=== PATIENT | male | born 1940 | race Caucasian/White ===

== ENCOUNTER 2023-08-10 13:45 | Outpatient (AMB) | payer OTHER, SELFPAY ==
--- NOTE | 2023-08-10 13:56 | MHC.OFFVIS ---
Intake Vital Signs 08/10/23 13:59 Height 5 ft 4 in Weight 180 lb BMI 30.9 BP 130/68 Blood Pressure Location Rt brachial Position Sitting Pulse 76 Pulse Source Pulse Oximeter Pulse Oximetry (%) 93 Oxygen Delivery Method Room Air Intake Visit Reasons: ENP-Prog gaitdisorder/Intentional tremor-Conf Intake Note: Patient presents for follow up intentional tremors and gait disorder. My tremors are a little bit now,my balance is a problem I can be taking a shower and loose balance I drag my feet to walk. Allergies No Known Allergies Allergy (Verified 08/10/23 14:02) Medication List - Last Reconciled 08/13/23 by Merna Jacob, JOSE amlodipine 5 mg PO DAILY carbidopa-levodopa 25-100 mg 1 tab PO BID 30 days HPI HPI Comments History of Present Illness Details 83-year-old male presents for new pt evaluation of movement disorder. He is accompanied by his friend Jason who helps with history. 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 Then about 6 months ago he started to notice changes in his gait. Pt is right handed. ADL status: Ind, but sometimes his helps w/ his socks and shoes IADL status: helps Fine-motor skills: No issues. Can eat Pt reports: Micrographia: No issues Hypophonia: Denies Hyposmia: No sense of smell since after bladder sx Dysphagia: Denies Drooling: Denies Orthostatic lightheadedness: Denies- but is slow to stand Constipation: Denies Slowness: Is slower Freezing episodes: Unsure Tremor: BUE- w/ cation, intensity varies Stiffness: Right fingers can be tight and postured at times Gait changes: Stooped, no arm swing, bent knees, shuffled steps- gait better when holding on to something. Falls: Last fall a couple of years ago Sleep difficulty: Sleeps ok- can sleep a lot. Denies parasomnias, vivid dreams. Memory impairment: Ok Hallucinations: Denies Usual exercise: Does some simple leg exercises, walk w/ walker. He did PT a few months. Also endorses low back pain, BLE nocturnal leg cramps. Denies numbness, tingling. He has not had brain MRI. History of concussion/head injury? None History of neuroleptic (metoclopramide/antipsychotics) use? None History of psychiatric hospitalizations? None History of occupational chemical exposures? 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 Family history of movement disorders? None- his father was lost in the war in 1940 Family history of mood disorder or suicide? none [facility] Medical History (Updated 08/13/23 @ 20:23 by JOSE Estrada) Arthritis Hyperlipidemia Gout Chronic kidney disease, stage 3 Hypertension Ureteral cancer Surgical History (Updated 08/10/23 @ 14:13 by SARY Johnson) H/O ileostomy Social History (Updated 08/10/23 @ 14:05 by SARY Johnson) Alcohol intake: never Patient Tobacco Use Status: Never used Tobacco Review of Systems Const All systems reviewed & are unremarkable except as noted in HPI and below Physical Exam Vital Signs: Last Vital Signs Pulse 76 08/10/23 13:59 BP 130/68 08/10/23 13:59 Pulse Ox 93 08/10/23 13:59 Oxygen Delivery Method Room Air 08/10/23 13:59 BMI result Body Mass Index 30.9 Const General: cooperative and no acute distress Resp Effort & Inspection: normal respiratory effort and able to speak in complete sentences Cardio Rate: regular rate Rhythm: regular rhythm Neuro Other: General: Alert and oriented x3 Expression: Decreased facial expression with left facial droop. Palpebral fissure asymmetry right smaller than left Voice: Soft voice Tremor: LUE rest tremor and BUE postural tremor KELLI: BUE ok Tone: BUE, mybno-[id number]-btnn-left Dyskinesia: None FFM: Bradykinesia left more so than right Foot taps: Bradykinesia left more so than right Gait: Slow to stand [place], decreased arm swing, very short steps. Psych: Pleasant affect Deep tendon reflexes (DTR's): Right triceps reflex intensity grade: 2+, Left triceps reflex intensity grade: 2+, Rt Biceps (C5, C6): 2+, Left biceps reflex intensity grade: 2+, Right brachioradialis reflex intensity grade: 2+, Left brachioradialis reflex intensity grade: 2+, Right patellar reflex intensity grade: 2+ and Left patellar reflex intensity grade: 2+ Psych Mental Status: mental status grossly normal Speech and movement: Normal speech and movement present Affect: normal affect Attitude: cooperative Thought process: Normal thought process present Assessment & Plan Assessment & Plan (1) Tremor: Comment: Patient has long work history as a industrial welder. Code(s): R25.1 - Tremor, unspecified (2) Rigidity: Code(s): R29.898 - Other symptoms and signs involving the musculoskeletal system (3) Gait disturbance: Code(s): R26.9 - Unspecified abnormalities of gait and mobility (4) Bradykinesia: Code(s): R25.8 - Other abnormal involuntary movements (5) Cervicalgia: Code(s): M54.2 - Cervicalgia Plan Patient has symptoms consistent with a neurodegenerative dopaminergic process, such as Parkinson's, however to ensure patient does not have any secondary processes that would mimic a Parkinson's disease presentation, patient is advised to undergo: Brain MRI with and without contrast Cervical x-rays four views Will also request recent labs from [facility]. In the mean time, will trial the patient on low-dose carbidopa levodopa to see if his symptoms are levodopa responsive. Start carbidopa levodopa 25-100 mg 1 tab b.i.d. taken at least 30-45 minutes before breakfast and dinner. May take with a small amount of carbohydrate, but try to avoid taking with protein. Patient would benefit from doing a course of physical therapy for tremor, gait, and general strength and endurance. Follow-up upon review of above and in clinic in 3 months or sooner as needed. This note is constructed using voice recognition software. While every effort has been made to ensure accuracy, matzo forming machine operator errors may have been included. Orders: Orders MR head/brain wo/w con Today C66.9 - Malignant neoplasm of unspecified ureter, R25.1 - Tremor, unspecified, R25.8 - Other abnormal involuntary movements, R26.9 - Unspecified abnormalities of gait and mobility, R29.898 - Other symptoms and signs involving the musculoskeletal system XR cervical spine 4V Today M54.2 - Cervicalgia, R25.1 - Tremor, unspecified Medications: New carbidopa-levodopa 25-100 mg take w/ a cracker 30 minutes before breakfast and dinner, 1 tab PO BID 60 tabs 3RF 30 days Coding Level of Care Code New Pt Level 4 (10957) Diagnoses Tremor R25.1 Rigidity R29.898 Gait disturbance R26.9 Bradykinesia R25.8 Cervicalgia M54.2
[2023-08-10 13:59] VITALS: BP 130/68; PULSE 76; O2SAT 93; BMI 30.9
== END 2023-08-10 15:05 | disposition home or self-care (01) ==
PROVIDERS: PCP Internal Medicine; Visit Provider Nurse Practitioner Family
DX: R25.1 Tremor, unspecified (principal); R29.898 Other symptoms and signs involving the musculoskeletal system; R26.9 Unspecified abnormalities of gait and mobility; R25.8 Other abnormal involuntary movements; M54.2 Cervicalgia
CPT/HCPCS: 99204

== ENCOUNTER → 2023-08-10 13:45 | Outpatient (BNVA) | payer OTHER, SELFPAY | PROVIDERS: PCP Internal Medicine; Visit Provider Nurse Practitioner Family ==

== ENCOUNTER 2023-11-21 15:54 | Outpatient (AMB) | payer OTHER, SELFPAY ==
--- NOTE | 2023-11-21 15:55 | A.OFFVIS_ITS ---
Vital Signs 11/21/23 16:14 Height 5 ft 4 in Weight 183 lb 6 oz BMI 31.5 BP 120/74 Blood Pressure Location Rt brachial Position Sitting Pulse 61 Pulse Source Pulse Oximeter Pulse Oximetry (%) 98 Oxygen Delivery Method Room Air Intake Visit Reasons: follow up - Confirmed Intake Note: Patient presents for f/u. Allergies No Known Allergies Allergy (Verified 11/21/23 16:04) Medication List - Last Reconciled 11/21/23 by JOSE Estrada amlodipine 5 mg PO DAILY atorvastatin 20 mg PO DAILY carbidopa-levodopa 25-100 mg 1 tab PO BID 30 days lidocaine 5% 1 patch topical DAILY metoprolol succinate ER 50 mg PO DAILY HPI Comments Details: 83-yr-old male presents for f/u visit, accompanied by his friend. Pt denies any significant interval medical history changes. Pt is not exatctly sure why he is here for f/u. He does continue to have tremor and gait difficulties w/ slow short steps. He needs to use a walker at all times. He has not yet tried CD-LD. He did undergo Brain MRI w/wo, results of which were notable for numerous foci of microhemorrhages in the supratentorial and infratentorial brain. Mild scattered foci of T2 prolongation are seen in the white matter. There is a small chronic lacunar infarct in the left inferior cerebellar mass associated with a chronic microhemorrhage. There are small chronic lacunar infarcts in the left basal ganglia, left temporal periventricular white matter, right soto radiata, and left centrum semiovale. There is left chronic thalamic infarct. Tiny chronic right thalamic infarcts are present. Pt denies h/o known acute stroke. 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 Review of recent [facility] records, shows pt did have a recent [facility] pulmonology consult to f/u on abnormal HST w/ RDI 22/hr, O2 naidr 82% w/ SpO2 < 89% x's 101 min, moderate sleep apnea, Cheyen mcmahon respiration, nocturnal hypoxemia. Pt was offered in-lab PSG w/ pap titration. Pt declined as he states he sleeps well. Recent labs were notable for: 04/25/23: HgA1C 6.0 % 04/25/2023 17:03 EDT 08/10/2023: BUN 28 mg/dL, Creatinine-Blood 2.0 mg/dl 08/10/2023 Nt-Probnp 985 pg/mL 04/25/2023 Nt-Probnp 1624 pg/mL 05/18/23: Sed Rate 111 05/16/23: Sed Rate 121 [facility] Medical History (Updated 11/21/23 @ 17:27 by JOSE Estrada) Arthritis Hyperlipidemia Gout Chronic kidney disease, stage 3 Hypertension Ureteral cancer Surgical History H/O ileostomy Social History Alcohol intake: never Patient Tobacco Use Status: Never used Tobacco Review of Systems Const All systems reviewed & are unremarkable except as noted in HPI and below Physical Exam Const General: cooperative and no acute distress Resp Effort & Inspection: normal respiratory effort and able to speak in complete sentences Neuro Other: General: Alert and oriented x3 Expression: Decreased facial expression with left facial droop. Palpebral fissure asymmetry right smaller than left Voice: Soft voice Tremor: BUE postural tremor KELLI: BUE ok Tone: BUE Dyskinesia: None FFM: Bradykinesia left more so than right Foot taps: Bradykinesia left more so than right Gait: Slow to stand, slight stoop, decreased arm swing, very short steps w/ low floor clearance. Psych: Pleasant affect Results Reviewed Results Reviewed: 10/31/23, [facility], MRI Brain W+W/O Contrast COMPARISON: CT head of 12/12/2021 FINDINGS: BRAIN and EXTRA-AXIAL SPACES: The midline structures, including sella, corpus callosum, and craniocervical junction, are unremarkable. There is no mass effect, midline shift, or effacement of the basal cisterns. On diffusion weighted imaging, there are no regions of restricted diffusion to indicate an acute or subacute infarct. There are numerous foci of microhemorrhages in the supratentorial and infratentorial brain. Mild scattered foci of T2 prolongation are seen in the white matter. There is a small chronic lacunar infarct in the left inferior cerebellar mass associated with a chronic microhemorrhage. There are small chronic lacunar infarcts in the left basal ganglia, left temporal periventricular white matter, right soto radiata, and left centrum semiovale. There is left chronic thalamic infarct. Tiny chronic right thalamic infarcts are present. Ventricles, cisterns, and sulci are normal in size and configuration, without hydrocephalus. No abnormal extra-axial fluid collections are seen. Meningeal surfaces are normal. No abnormal intracranial enhancement is seen. Major intracranial flow voids are present. EXTRACRANIAL SOFT TISSUES: There have been lens replacements bilaterally. Paranasal sinuses are clear. There is fluid in the right mastoid air cells and trace of fluid in the left mastoid air cells. There are well-circumscribed T1 and T2 hyperintense lesions in the nasopharynx which may represent mucous retention cysts. BONES: Marrow signal is preserved. IMPRESSION: 1. No acute/subacute infarct, mass, acute hemorrhage, abnormal enhancement, or other acute intracranial abnormality. 2. Multiple chronic microhemorrhage is as described which could be seen with hypertensive hemorrhages, cerebral amyloid angiopathy, or a combination thereof. Clinical correlation is advised. 3. Mild T2/FLAIR hyperintense foci in the white matter, nonspecific but most likely reflecting chronic small vessel disease. Multiple supratentorial and infratentorial chronic small infarcts. 4. Nasopharyngeal mucous retention cysts. 06/08/2023, Echocardiogram, complete: Summary The left ventricle is normal in size. Systolic function is mildly decreased. Ejection fraction is 40-50%. The inferolateral wall is akinetic. Diastolic function could not be determined. The left atrium is mildly dilated. The right ventricle is normal in size. Function is preserved. Per 10/31/23, [facility] Pulmonology note: Home Sleep Test (06/03/2023): Accuracy questionable due to poor quality of document scanned into [employer]. - RDI 22.0 - Apneas 41 - Obstructive Apneas: 33 - Central Apneas: 8 - Hypopneas: 73 - HAROLDO: 26.7 - Lowest Saturation 82% - Oxygen Saturation <= 89% 101 minutes - Minimum pulse frequency: [illegible] - Maximum pulse frequency: 110 - Impression: --?Findings are consistent with moderate obstructive sleep apnea --Michele-Mcmahon breathing pattern was noted or suspected --Findings are consistent with snoring --Sleep-related hypoxia -Recommendations: --Michele-Mcmahon respiratory pattern was noted. Consider an in laboratory facility based sleep study to evaluate for central sleep apnea, if clinically indicated. --Consider referral to a sleep specialist, if clinical indicated --Recommend further evaluation of [illegible] via nocturnal pulse oximetry once sleep apnea is adequately controlled.?If indicated supplemental oxygen may be considered in conjunction with?selected sleep apnea treatment. --If symptom resolution of sleep apnea is not?achieved, or?suspicion of [il legible]?sleep disturbances?persist, consider referral to a sleep specialist --Consider?[illegible] interventions such as weight reduction or smoking cessation, if clinically indicated. --Consider?advising patient?against the use of alcohol and sedatives as these substances can worsen excessive daytime sleepiness or?respiratory disturbances of sleep. --Consider advising the patient not to drive,?operate heavy machinery or engage in other activities which may hazardous when sleepy or sleep deprived. --Consider advising patient of the long-term consequences of CHELSY if left untreated, need for treatment and also follow-up. --The degree of desaturations seems out of proportion to the AHI. Consider?[illegible] pulse oximetry (confirm that artifact is ruled out)?and if low saturations are confirmed consider?other causes for hypoxemia. --Consider?cardiac telemetry monitoring given the elevated maximum heart rate observed in 1 or more of the other recorded nights?which was not directly?captured?on the interpreted night. --Consider referral to a?board-certified inside outside sales representative for pulmonary evaluation given the abnormal SpO2 findings. [facility], Lab Results Test Name Test Result Date/Time WBC 11.1 k/mm3 08/10/2023 08:42 EST WBC 10.0 k/mm3 04/25/2023 17:03 EDT RBC 4.47 m/mm3 08/10/2023 08:42 EST Hgb 12.2 Gm/dL 08/10/2023 08:42 EST Hct 39.0 % 08/10/2023 08:42 EST MCV 87.2 femtoliters 08/10/2023 08:42 EST MCH 27.3 pg 08/10/2023 08:42 EST MCHC 31.3 g/dL 08/10/2023 08:42 EST Platelet Count 391 k/mm3 08/10/2023 08:42 EST RDW-SD 47.3 femtoliters 08/10/2023 08:42 EST MPV 10.8 femtoliters 08/10/2023 08:42 EST Nucleated RBC (Automated) 0.0 #/100 WBC'S 08/10/2023 08:42 EST Abs. NRBC 0.0 k/mm3 08/10/2023 08:42 EST Abs. Neut 7.4 k/mm3 04/25/2023 17:03 EDT Abs. Lymph 1.6 k/mm3 04/25/2023 17:03 EDT Abs. Charles Mix 0.8 k/mm3 04/25/2023 17:03 EDT Abs. Eo 0.1 k/mm3 04/25/2023 17:03 EDT Abs. Baso 0.0 k/mm3 04/25/2023 17:03 EDT Neut % 73.9 % 04/25/2023 17:03 EDT Lymph % 16.0 % 04/25/2023 17:03 EDT Charles Mix % 8.4 % 04/25/2023 17:03 EDT Eos % 0.8 % 04/25/2023 17:03 EDT Baso % 0.3 % 04/25/2023 17:03 EDT Imm Gran 0.6 % 04/25/2023 17:03 EDT Abs. Imm Gran 0.1 k/mm3 04/25/2023 17:03 EDT Sodium 136 mmol/L 08/10/2023 08:42 EST Potassium 4.9 mmol/L 08/10/2023 08:42 EST Chloride 100 mmol/L 08/10/2023 08:42 EST Bicarbonate Level 25 mmol/L 08/10/2023 08:42 EST Anion Gap 11 08/10/2023 08:42 EST Glucose Level 126 mg/dL 08/10/2023 08:42 EST Hemoglobin A1C (Monitoring) 6.0 % 04/25/2023 17:03 EDT BUN 28 mg/dL 08/10/2023 08:42 EST Creatinine-Blood 2.0 mg/dL 08/10/2023 08:42 EST Estimated GFR Creatinine 32 ML/MIN/1.73 M2 08/10/2023 08:42 EST Calcium 9.3 mg/dL 08/10/2023 08:42 EST Protein, Total 7.7 Gm/dL 04/25/2023 17:03 EDT Albumin 4.0 Gm/dL 04/25/2023 17:03 EDT AG Ratio 1.1 04/25/2023 17:03 EDT Alkaline Phosphatase 107 units/L 04/25/2023 17:03 EDT AST (SGOT) 17 units/L 04/25/2023 17:03 EDT ALT (SGPT) 9 units/L 04/25/2023 17:03 EDT Bilirubin, Total 0.2 mg/dL 04/25/2023 17:03 EDT Iron Level 79 mcg/dL 08/10/2023 08:42 EST Iron Binding Capacity, Unsaturated 287 mcg/dL 08/10/2023 08:42 EST Iron Binding Capacity, Estimated Total 366 mcg/dL 08/10/2023 08:42 EST % Iron Saturation 22 % 08/10/2023 08:42 EST Ferritin Level 178 ng/mL 05/16/2023 13:29 EDT Nt-Probnp 985 pg/mL 08/10/2023 08:42 EST Nt-Probnp 1624 pg/mL 04/25/2023 17:03 EDT TSH 1.79 uIU/mL 04/25/2023 17:03 EDT Anti-Nuclear Antibody Screen NEGATIVE 05/16/2023 13:29 EDT Rheumatoid Factor <10.0 IU/mL 05/16/2023 13:29 EDT Sed Rate 111 05/18/23 13:00 Sed Rate 121 05/16/23 13:29 Assessment & Plan Assessment & Plan (1) Tremor: Comment: 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 Code(s): R25.1 - Tremor, unspecified Category: Medical (2) Rigidity: Code(s): R29.898 - Other symptoms and signs involving the musculoskeletal system Category: Medical (3) Multiple cerebral infarctions: Code(s): I63.9 - Cerebral infarction, unspecified Category: Medical (4) Gait disturbance: Code(s): R26.9 - Unspecified abnormalities of gait and mobility Category: Medical (5) Bradykinesia: Code(s): R25.8 - Other abnormal involuntary movements Category: Medical (6) Obstructive sleep apnea: Code(s): G47.33 - Obstructive sleep apnea (adult) (pediatric) Category: Medical Plan Reviewed Brain MRI with and without contrast: Pt has chronic ishemic microangiopathic cahnges, numerous supratentorial and infratentorial microhemorrhages. Small chronic lacunar infarct in left inferior cerebellar mass a/w chronic microhemorrhage. Small chronic lacunar infarcts in left basal g anglia, left temporal periventricular white matter, right soto radiata, and left centrum semiovale. Left chronic thalamic infarct. Tiny chronic right thalamic infarcts. Pt's BP is normotensive. Recent lipids- WNL. Last HgA1C 6%, has elevated BNP, elevated ESR, CKD. Discussed that pt has had had multiple small strokes, in various areas of the brain, but also notably within bilateral basal ganglia which likely accounts for pt's Parkinsonism s/s. Discussed that pt is at risk for developing future strokes, and advised pt to undergo further work-up to assess for underlying etiologies, which may be increasing his stroke risk- such as head/neck CTA/MRA. Also advsied pt to undergo in-lab PSG to idnetify optimal tx for his moderate CHELSY w/ hypoxemia and Michele mcmahon resp- as untreated sleep apnea can be a/w increased stroke risk, poorly controlled blood glucose levels, fatigue. For now, continue amlodipine, statin, metoprolol. Pt declines any additional work-up at this time. Will defer to PCP for furtehr work-up/suggestions. ? He does agree to trial carbidopa-levodopa 25-100 mg 1 tab b.i.d. taken at least 30-45 minutes before breakfast and dinner. May take with a small amount of carb ohydrate, but try to avoid taking with protein. Once pt has started CD-LD, pt would benefit from doing a course of physical therapy for tremor, gait, and general strength and endurance. Pt and caregive will update us in 1 month w/ effect. ? Follow-up upon review of above and in clinic in 6 months or sooner as needed. Medications: Refilled carbidopa-levodopa 25-100 mg take w/ a cracker 30 minutes before breakfast and dinner, 1 tab PO BID 30 days 60 tabs 6RF Scribe Plan - Not visible on output: Discussed importance of regular physical activity for management of PD s/s, such as walking, cycling, boxing. Discussed benefits of dopaminergic therapies, such as reduced tremor and improved motor symptoms. Discussed potential adverse effects of dopaminergic therapies, including but not limited to nause/GI upset, orthostatic lightheadedness, dyskineisas, sleepiness, hallucinations. Pt is advised to establish care with a lead sharepoint developer due to slight increase risk of melanoma seen in patient's with Parkinson's disease. Coding Level of Care Code Est Pt Level 4 (29010) Diagnoses Tremor R25.1 Rigidity R29.898 Multiple cerebral infarctions I63.9 Gait disturbance R26.9 Bradykinesia R25.8 Obstructive sleep apnea G47.33
[2023-11-21 16:14] VITALS: BP 120/74; PULSE 61; O2SAT 98; BMI 31.5
== END 2023-11-21 16:40 | disposition home or self-care (01) ==
PROVIDERS: PCP Internal Medicine; Visit Provider Nurse Practitioner Family
DX: R25.1 Tremor, unspecified (principal); R29.898 Other symptoms and signs involving the musculoskeletal system; I63.89 Other cerebral infarction; R26.9 Unspecified abnormalities of gait and mobility; R25.8 Other abnormal involuntary movements; G47.33 Obstructive sleep apnea (adult) (pediatric)
CPT/HCPCS: 99214

== ENCOUNTER → 2023-11-21 15:54 | Outpatient (BNVA) | payer OTHER, SELFPAY | PROVIDERS: PCP Internal Medicine; Visit Provider Nurse Practitioner Family ==

== ENCOUNTER 2024-07-22 14:53 | Outpatient (AMB) | payer OTHER, SELFPAY ==
--- OUTSIDE RECORDS SUMMARY | 2024-07-22 14:55 | XMS_ITS | Clinical Summary ---
Author Organization Unknown Care Team Providers Care [employer] Name Role Phone CALDERON MIX, JESSE Unavailable Unavailable JENELLE RN, CORA Unavailable Unavailable KAY PT, JADIEL Unavailable Unavailable SPAITZEL OT, DESIREE Unavailable Unavailable Payers Payer Name Policy Type Policy Number Effective Date Expira tion Date MEDICARE.NGS.PDGM [id number] Problems Condition Name Condition Details Condition Category Status Onset Date Resolution Date Last Treatment Date Treating Clinician Comments AFTERCARE FOLLOWING SURGERY FOR NEOPLASM Active 2019-07 00:00: 00 MALIGNANT NEOPLASM OF BLADDER, UNSPECIFIED Active 2019-07 00:00: 00 ENCOUNTER FOR ATTN TO OTH ARTIF OPENINGS OF URINARY TRACT Active 2019-07 00:00: 00 UNSPECIFIED HYDRONEPHROS IS Active 2019-07 00:00: 00 ESOPHAGITIS, UNSPECIFIED WITHOUT BLEEDING Active 2019-07 00:00: 00 DYSPHAGIA, UNSPECIFIED Active 2019-07 00:00: 00 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/UNSP CHR KDNY Active 2019-07 00:00: 00 CHRONIC KIDNEY DISEASE, STAGE 3 UNSPECIFIED Active 2019-07 00:00: 00 ESOPHAGEAL OBSTRUCTION Active 2019-07 00:00: 00 DUODENAL ULCER, UNSP ACUTE OR CHRONIC, W/O HEMOR OR PERF Active 2019-07 00:00: 00 CHRONIC OBSTRUCTIVE PULMONARY DISEASE, UNSPECIFIED Active 2019-07- 00:00: 00 MUSCLE WEAKNESS (GENERALIZED ) Active 2019-07- 00:00: 00 HYPERLIPIDEM IA, UNSPECIFIED Active 1- 00:00: 00 BRADYCARDIA, UNSPECIFIED Active 2019-07 00:00: 00 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 Ordering Clinician Indication Dosage Frequency Signature (SIG) Comments Components enalapril 10 mg-hydrochl orothiazide 25 mg tablet 04-17 00:00: 06-28 00:00 :00 No [id number] Per instruc tions EVERY DAY Per instructio ns EVERY DAY (route: oral) Med Classific ation: Cardiovas cular Therapy Agents amlodipine 5 mg tablet 04-17 00:00: 00 06-28 00:00 :00 No [id number] Per instruc tions EVERY DAY Per instructio ns EVERY DAY (route: oral) Med Classific ation: Cardiovas cular Therapy Agents amlodipine 10 mg tablet 2019-07 00:00: 00 08-25 23:59 :00 No [id number] 1 tablet DAILY 1 tablet DAILY (route: oral) Med Classific ation: Cardiovas cular Therapy Agents Colace 100 mg capsule 2019-07 00:00: 00 Yes [id number] 1 capsule 2 TIMES DAILY 1 capsule 2 TIMES DAILY (route: oral) Med Classific ation: Gastroint estinal Therapy Agents enoxaparin 30 mg/0.3 mL subcutaneou s syringe 2019-07 00:00: 00 07-24 23:59 :00 No [id number] 30 mg DAILY 30 mg DAILY (route: subcutaneo us) Med Classific ation: Hematolog ical Agents oxycodone 5 mg tablet 2019-07 00:00: 00 07-24 23:59 :00 No [id number] 1 tablet EVERY 4 HOURS 1 tablet EVERY 4 HOURS (route: oral) Med Classific ation: Analgesic , Anti-infl ammatory or Antipyret ic Tylenol 325 mg tablet 2019-07 00:00: 00 Yes [id number] 2 tablet EVERY 6 HOURS 2 tablet EVERY 6 HOURS (route: oral) Med Classific ation: Analgesic , Anti-infl ammatory or Antipyret ic ascorbic acid (vitamin C) 1,000 mg tablet 08-18 00:00: 00 Yes [id number] 1 tablet 2 TIMES DAILY 1 tablet 2 TIMES DAILY (route: oral) Med Classific ation: Electroly te Balance-N utritiona l Products Cranberry Concentrate 500 mg capsule 08-18 00:00: 00 Yes [id number] 1 capsule DAILY 1 capsule DAILY (route: oral) Med Classific ation: Alternati ve Therapy methenamine mandelate 1 gram tablet 08-18 00:00: 00 08-25 23:59 :00 No [id number] 1 tablet 2 TIMES DAILY 1 tablet 2 TIMES DAILY (route: oral) Med Classific ation: Genitouri nary Therapy amlodipine 5 mg tablet 08-27 00:00: 00 Yes [id number] 1 tablet DAILY 1 tablet DAILY (route: oral) Med Classific ation: Cardiovas cular Therapy Agents methenamine hippurate 1 gram tablet 08-27 00:00: 00 Yes [id number] 1 tablet DAILY 1 tablet DAILY (route: oral) Med Classific ation: Genitouri nary Therapy nystatin 100,000 unit/gram topical powder 09-25 00:00: 00 Yes [id number] Per instruc tions 2 TIMES DAILY Per instructio ns 2 TIMES DAILY (route: topical) Med Classific ation: Dermatolo gical Immunizations Ordered Immunization Name Filled Immunization Name Date Status Comments Refusal Reason INFLUENZA, LAIV (LIVE VIRUS) 2020-04-23 00:00:00 Vital Signs Vital Name Observation Time Observation Value Commen ts Temperature 2020-10-20 13:06:02.000 97.6 [degF] Temperature 2020-10-13 14:33:09.000 97.4 [degF] Temperature 2020-10-09 14:29:23.000 97.4 [degF] Temperature 2020-10-02 13:35:31.000 97.7 [degF] Temperature 2020-09-25 14:53:55.000 97.8 [degF] Temperature 2020-09-18 15:23:46.000 97.2 [degF] Temperature 2020-09-11 16:19:56.000 97.8 [degF] Temperature 2020-09-01 15:54:45.000 98.7 [degF] Pulse 2020-10-20 13:06:14.000 88 /min Pulse 2020-10-13 14:33:25.000 68 /min Pulse 2020-10-09 14:29:33.000 70 /min Pulse 2020-10-02 13:40:23.000 72 /min Pulse 2020-09-25 14:54:10.000 74 /min Pulse 2020-09-18 15:24:00.000 78 /min Pulse 2020-09-11 16:20:06.000 74 /min Pulse 2020-09-01 15:54:59.000 78 /min O2 Saturation (%) 2020-10-20 13:06:59.000 99 % O2 Saturation (%) 2020-10-13 14:33:58.000 97 % O2 Saturation (%) 2020-10-09 14:30:23.000 97 % O2 Saturation (%) 2020-10-02 13:40:57.000 98 % O2 Saturation (%) 2020-09-25 14:54:45.000 98 % O2 Saturation (%) 2020-09-18 15:27:23.000 98 % O2 Saturation (%) 2020-09-11 16:20:35.000 98 % O2 Saturation (%) 2020-09-01 15:55:31.000 97 % Respirations 2020-10-20 13:06:27.000 18 /min Respirations 2020-10-13 14:33:35.000 18 /min Respirations 2020-10-09 14:29:39.000 18 /min Respirations 2020-10-02 13:40:30.000 18 /min Respirations 2020-09-25 14:54:17.000 18 /min Respirations 2020-09-18 15:24:08.000 18 /min Respirations 2020-09-11 16:20:13.000 18 /min Respirations 2020-09-01 15:55:05.000 18 /min Weight (lbs) 2020-10-20 13:08:14.000 170 [lb_av] Weight (lbs) 2020-10-20 13:07:30.000 166 [lb_av] Systolic Blood Pressure 2020-10-20 13:06:47.000 138 mm [Hg] Systolic Blood Pressure 2020-10-13 14:33:47.000 140 mm [Hg] Systolic Blood Pressure 2020-10-09 14:29:50.000 140 mm [Hg] Systolic Blood Pressure 2020-10-02 13:40:47.000 140 mm [Hg] Systolic Blood Pressure 2020-09-25 14:54:34.000 140 mm [Hg] Systolic Blood Pressure 2020-09-18 15:27:12.000 130 mm [Hg] Systolic Blood Pressure 2020-09-11 16:20:25.000 140 mm [Hg] Systolic Blood Pressure 2020-09-01 15:55:18.000 140 mm [Hg] Diastolic Blood Pressure 2020-10-20 13:06:47.000 80 mm [Hg] Diastolic Blood Pressure 2020-10-13 14:33:47.000 84 mm [Hg] Diastolic Blood Pressure 2020-10-09 14:29:50.000 84 mm [Hg] Diastolic Blood Pressure 2020-10-02 13:40:47.000 72 mm [Hg] Diastolic Blood Pressure 2020-09-25 14:54:34.000 90 mm [Hg] Diastolic Blood Pressure 2020-09-18 15:27:12.000 82 mm [Hg] Diastolic Blood Pressure 2020-09-11 16:20:25.000 72 mm [Hg] Diastolic Blood Pressure 2020-09-01 15:55:18.000 86 mm [Hg] Plan of Treatment Planned Activity Planned Date Details Comments Future Scheduled Test SKILLED NU RSE TO ASSESS, EVALUATE, AND DEVELOP AN INDIVIDUALIZED PLAN OF CARE. AGENCY MAY ACCEPT ORDERS FROM CONSULTING PHYSICIANS DR ORO AND DR DARRELL HENRIQUEZ TO OBSERVE/ASSESS RISK FOR FALLS AND INSTRUCT IN FALL PREVENTION, HOME SAFETY, MEDICATION MANAGEMENT, INFECTION PREVENTION, AND NUTRITION MANAGEMENT. SN MAY PERFORM O2 SATURATION LEVEL ON ADMISSION AND PRN FOR RESP CHANGES TO ASSESS PATIENT, WITH NOTIFICATION TO THE PHYSICIAN IF SATURATION IS 90% IN THE ABSENCE OF MORE SPECIFIC PARAMETERS FROM THE PHYSICIAN. AGENCY MAY PERFORM A RESUMPTION OF CARE VISIT FOLLOWING ANY HOSPITAL ADMISSION. 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 SKILLED NURSE TO INSTRUCT PATIENT / CAREGIVER ON DISEASE PROCESS, SELF MANAGEMENT, SIGNS AND SYMPTOMS TO REPORT TO SN/PHYSICIAN, RELATED TO: UROSTOMY TEACHING GENITOURINARY MANAGEMENT AND MED CHANGES [code = SKILLED NURSE TO ASSESS, EVALUATE, AND DEVELOP AN INDIVIDUALIZED PLAN OF CARE. AGENCY MAY ACCEPT ORDERS FROM CONSULTING PHYSICIANS DR ORO AND DR RAMÍREZ SN TO OBSERVE/ASSESS RISK FOR FALLS AND INSTRUCT IN FALL PREVENTION, HOME SAFETY, MEDICATION MANAGEMENT, INFECTION PREVENTION, AND NUTRITION MANAGEMENT. SN MAY PERFORM O2 SATURATION LEVEL ON ADMISSION AND PRN FOR RESP CHANGES TO ASSESS PATIENT, WITH NOTIFICATION TO THE PHYSICIAN IF SATURATION IS 90% IN THE ABSENCE OF MORE SPECIFIC PARAMETERS FROM THE PHYSICIAN. AGENCY MAY PERFORM A RESUMPTION OF CARE VISIT FOLLOWING ANY HOSPITAL ADMISSION. 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 SKILLED NURSE TO INSTRUCT PATIENT / CAREGIVER ON DISEASE PROCESS, SELF MANAGEMENT, SIGNS AND SYMPTOMS TO REPORT TO SN/PHYSICIAN, RELATED TO: UROSTOMY TEACHING GENITOURINARY MANAGEMENT AND MED CHANGES ] Future Scheduled Test MEDICATION MANAGEMENT; SKILLED NURSE TO REVIEW MEDICATIONS FOR INTERACTIONS, EFFECTIVENESS OF DRUG THERAPY, AND SIGNS/SYMPTOMS OF ADVERSE REACTIONS. MAY INSTRUCT AND REINFORCE MEDICATION TEACHING RELATED TO THE USE OF MEDICATIONS, DOSAGE, FREQUENCY, PURPOSE, SIDE EFFECTS, AND TO REPORT COMPLICATIONS. [code = MEDICATION MANAGEMENT; SKILLED NURSE TO REVIEW MEDICATIONS FOR INTERACTIONS, EFFECTIVENESS OF DRUG THERAPY, AND SIGNS/SYMPTOMS OF ADVERSE REACTIONS. MAY INSTRUCT AND REINFORCE MEDICATION TEACHING RELATED TO THE USE OF MEDICATIONS, DOSAGE, FREQUENCY, PURPOSE, SIDE EFFECTS, AND TO REPORT COMPLICATIONS.] Future Scheduled Test RISK FOR H OSPITALIZATION; SKILLED NURSE TO INSTRUCT PATIENT/CAREGIVER ON RISK FOR HOSPITALIZATION, TEACH SIGNS AND SYMPTOMS THAT PUT PATIENT AT RISK, WHEN TO NOTIFY NURSE OF COMPLICATIONS/DECLINE, AND WHEN TO CALL 911. SKILLED NURSE TO INSTRUCT PATIENT/CAREGIVER ON: SIGNS AND SYMPTOMS TO BE ON ALERT FOR EARLY INTERVENTION, PRIOR TO NEEDING EMERGENCY SERVICES CALL [facility] NURSE TO KEEP FIRING PIN GAUGER SYMPTOM REPORT FOR VISIBLE REFERENCE NOTIFY SKILLED NURSE/PHYSICIAN FOR DECLINE IN STATS WHEN AND HOW TO CALL HOME HEALTH AGENCY FACILITATE PHYSICIAN FOLLOW UP APPOINTMENT IDENTIFY SOCIOECONOMIC CONCERNS AND MAKE APPROPRIATE REFERRAL NEEDED IDENTIFY PATIENT GOALS FOR STAYING OUT OF THE HOSPITAL: SEE MY DOCTOR [code = RISK FOR HOSPITALIZATION; SKILLED NURSE TO INSTRUCT PATIENT/CAREGIVER ON RISK FOR HOSPITALIZATION, TEACH SIGNS AND SYMPTOMS THAT PUT PATIENT AT RISK, WHEN TO NOTIFY NURSE OF COMPLICATIONS/DECLINE, AND WHEN TO CALL 911. SKILLED NURSE TO INSTRUCT PATIENT/CAREGIVER ON: SIGNS AND SYMPTOMS TO BE ON ALERT FOR EARLY INTERVENTION, PRIOR TO NEEDING EMERGENCY SERVICES CALL [facility] NURSE TO KEEP FIRING PIN GAUGER SYMPTOM REPORT FOR VISIBLE REFERENCE NOTIFY SKILLED NURSE/PHYSICIAN FOR DECLINE IN STATS WHEN AND HOW TO CALL HOME HEALTH AGENCY FACILITATE PHYSICIAN FOLLOW UP APPOINTMENT IDENTIFY SOCIOECONOMIC CONCERNS AND MAKE APPROPRIATE REFERRAL NEEDED IDENTIFY PATIENT GOALS FOR STAYING OUT OF THE HOSPITAL: SEE MY DOCTOR ] Future Scheduled Test GENITOURIN INÉS MANAGEMENT; SKILLED NURSE TO ASSESS AND TEACH RELATED TO ALTERED GENITOURINARY STATUS TO MINIMIZE COMPLICATIONS AND REDUCE HOSPITALIZATION. [code = GENITOURINARY MANAGEMENT; SKILLED NURSE TO ASSESS AND TEACH RELATED TO ALTERED GENITOURINARY STATUS TO MINIMIZE COMPLICATIONS AND REDUCE HOSPITALIZATION.] Future Scheduled Test UROSTOMY M ANAGEMENT; SKILLED NURSE TO INSTRUCT PATIENT/CAREGIVER ON UROSTOMY MANAGEMENT INCLUDING APPLIANCE TYPE, USAGE, AND STOMA CARE EACH VISIT NEEDED. [code = UROSTOMY MANAGEMENT; SKILLED NURSE TO INSTRUCT PATIENT/CAREGIVER ON UROSTOMY MANAGEMENT INCLUDING APPLIANCE TYPE, USAGE, AND STOMA CARE EACH VISIT NEEDED.] Future Scheduled Test SKILLED NU RSE TO ASSESS FOR SIGNS AND SYMPTOMS OF SEPSIS AND/OR POST-SEPSIS SYNDROME AND INTERVENE TO MINIMIZE COMPLICATIONS. SKILLED NURSE TO PROVIDE SKILLED TEACHING TO PATIENT/CAREGIVER ON SEPSIS AND SELF-MANAGEMENT TECHNIQUES. SKILLED NURSE TO MONITOR PATIENT/CAREGIVER ADHERENCE TO MONITOR AND RECORD VITALS SIGNS INCLUDING TEMPERATURE, HEART RATE, RESPIRATIONS, AND SYMPTOMS. SKILLED NURSE TO PROVIDE ALF TO ACCOMPLISH THE PATIENTS PERSONAL GOAL OF PREVENTION OF INFECTION [code = SKILLED NURSE TO ASSESS FOR SIGNS AND SYMPTOMS OF SEPSIS AND/OR POST-SEPSIS SYNDROME AND INTERVENE TO MINIMIZE COMPLICATIONS. SKILLED NURSE TO PROVIDE SKILLED TEACHING TO PATIENT/CAREGIVER ON SEPSIS AND SELF-MANAGEMENT TECHNIQUES. SKILLED NURSE TO MONITOR PATIENT/CAREGIVER ADHERENCE TO MONITOR AND RECORD VITALS SIGNS INCLUDING TEMPERATURE, HEART RATE, RESPIRATIONS, AND SYMPTOMS. SKILLED NURSE TO PROVIDE ALF TO ACCOMPLISH THE PATIENTS PERSONAL GOAL OF PREVENTION OF INFECTION ] Future Scheduled Test FALL REDUC TION MANAGEMENT; NURSING TO PROVIDE SKILLED ASSESSMENT, EDUCATION, AND INTERVENTION TO IDENTIFY FALL RISK FACTORS SUCH MEDICATIONS THAT MAY CAUSE DIZZINESS, CHRONIC DISEASES, PSYCHOLOGICAL FACTORS, AND EMPOWER/EDUCATE PATIENT/CAREGIVER TO MINIMIZE FALL RISK. [code = FALL REDUCTION MANAGEMENT; NURSING TO PROVIDE SKILLED ASSESSMENT, EDUCATION, AND INTERVENTION TO IDENTIFY FALL RISK FACTORS SUCH MEDICATIONS THAT MAY CAUSE DIZZINESS, CHRONIC DISEASES, PSYCHOLOGICAL FACTORS, AND EMPOWER/EDUCATE PATIENT/CAREGIVER TO MINIMIZE FALL RISK.] Future Scheduled Test 60 DAY PHY SICIAN SUMMARY; NEED FOR CONTINUED CARE RECERT DUE TO PROBLEMS: TEACH BACK DEMONSTRATION NEW MED TEACHING [code = 60 DAY PHYSICIAN SUMMARY; NEED FOR CONTINUED CARE RECERT DUE TO PROBLEMS: TEACH BACK DEMONSTRATION NEW MED TEACHING ] Goal 2020-07-15 Patient Goal - [place] OUT OF HOSPITAL, GET STRONGER, HEAL WOUND Goal 2020-10-20 Patient Goal - [place] OUT OF HOSPITAL, GET STRONGER, HEAL WOUND Goal 2020-08-25 Patient Goal - [facility] [place] OUT OF HOSPITAL, GET STRONGER, HEAL WOUND Goal Provider Goal - A PLAN OF CARE WILL BE ESTABLISHED THAT MEETS THE PATIENT'S NURSING NEEDS BY 4/5 PATIENT WILL DEMONSTRATE OXYGEN SATURATION WITH NORMAL LIMITS OR TO PATIENT'S OPTIMAL LEVEL ESTABLISHED BY THE PHYSICIAN THROUGHOUT CARE Goal Provider Goal - PATIENT/CAREGIVER TO VERBALIZE, AND CONSISTENTLY DEMONSTRATE EFFECTIVE, SAFE MANAGEMENT OF MEDICATION INCLUDING KNOWLEDGE OF EFFECTIVENESS, POTENTIAL SIDE EFFECTS AND DRUG REACTIONS AND WHEN TO CONTACT THE APPROPRIATE CARE PROVIDER. PATIENT/CAREGIVER WILL BE ABLE TO VERBALIZE UNDERSTANDING OF MEDICATION REGIMEN AND ACCURATELY TAKE MEDICATIONS PRESCRIBED WITHOUT ADVERSE EFFECTS BY 4/5 Goal Provider Goal - PATIENT/CAREGIVER WILL VERBALIZE UNDERSTANDING OF SIGNS AND SYMPTOMS THAT PUT THE PATIENT AT RISK FOR HOSPITALIZATION, WHEN TO NOTIFY SN OF COMPLICATIONS/DECLINE AND WHEN TO CALL 911. Goal Provider Goal - PATIENT / CAREGIVER WILL VERBALIZE/DEMONSTRATE UNDERSTANDING OF MEASURES TO MANAGE ALTERED GENITOURINARY STATUS BY END OF EPISODE. Goal Provider Goal - PATIENT/CAREGIVER WILL BE ABLE TO VERBALIZE/DEMONSTRATE APPROPRIATE UROSTOMY MANAGEMENT BY 4/5 Goal Provider Goal - SIGNS OF SEPSIS WILL BE IDENTIFIED PROMPTLY, AND INTERVENTIONS INITIATED TO MINIMIZE SEVERITY AND RISK OF HOSPITALIZATION. POST-SEPSIS SYNDROME INTERVENTIONS WILL BE REVIEWED WITH THE PATIENT/CAREGIVER, IF APPLICABLE. PATIENT / CAREGIVER WILL VERBALIZE/DEMONSTRATE AN ABILITY TO ADHERE TO SELF-MANAGEMENT AT DISCHARGE BY 4/5 Goal Provider Goal - PATIENT/CAREGIVER ABLE TO IDENTIFY FALL RISK FACTORS AND IMPLEMENT STRATEGIES TO MINIMIZE FALL RISK. PATIENT/CAREGIVER WILL VERBALIZE/DEMONSTRATE AN ABILITY TO ADHERE TO FALL REDUCTION SELF MANAGEMENT AND LIFE-STYLE CHANGES AT DISCHARGE. PERSONAL GOAL(S) STATED BY PATIENT/CAREGIVER WILL BE MET BY 4/5 Goal Provider Goal - Reason for Visit INDEPENDENT IN THE HOME Encounters Start Date/Time End Date/Time Encounter Type Admission Type Attending [facility] Care Department Encounter ID Discharge Date Discharge Status Discharge Condition Discharge Reason Percent Goals Met 2020-06-28 00:00:00 2020-10-20 00:00:00 Outpatient RECERTIFIC [facility] [id number] 2020-10-20 00:00:00 DISCHARGE TO HOME OR SELF CARE INDEPENDEN T IN THE HOME HH OR PAL- GOALS MET 100.00
[2024-07-22 15:05] VITALS: BP 140/64; PULSE 62; O2SAT 96; BMI 30.7
--- NOTE | 2024-07-22 15:05 | MHC.OFFVIS ---
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 Patient is accompanied by his . Pt reports he underwent a follow-up abdominal CT, which raised question of bilateral lower lobe ground-glass attenuation, some of which raise suspicion for a neoplastic process. Patient was advised to undergo follow-up PET scan, however per , they declined this referral. 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 Patient reports to me today that he does not have Parkinson's, that his gait difficulties are due to history of low back and right knee injuries. Pt reports he tried CD-LD 25-100mg- 1 tab qd at 3:30pm 30-35 minutes before eating dinner. This caused headache and dizziness, especially if he waited to the 30-35 minutes. He does eat 3 meals a day. His notes that it is difficult to get him to drink fluids well. Though he does take sprayed, tea, coffee, small serving of vodka, and vegetable soup routinely. Denies any interval stroke-like symptoms. Denies usual orthostatic lightheadedness. He states his tremor is better. Walking with a cane. Denies falls. Denies constipation. Previous workup: 10/31/2023, Brain MRI w/wo, results of which were notable for numerous foci of microhemorrhages in the supratentorial and infratentorial brain. Mild scattered foci of T2 prolongation are seen in the white matter. There is a small chronic lacunar infarct in the left inferior cerebellar mass associated with a chronic microhemorrhage. There are small chronic lacunar infarcts in the left basal ganglia, left temporal periventricular white matter, right soto radiata, and left centrum semiovale. There is left chronic thalamic infarct. Tiny chronic right thalamic infarcts are present. 10/31/2023, [facility] pulmonology consult: f/u of abnormal HST w/ RDI 22/hr, O2 naidr 82% w/ SpO2 < 89% x's 101 min, moderate sleep apnea, Cheyen mcmahon respiration, nocturnal hypoxemia. Pt was offered in-lab PSG w/ pap titration. Pt declined as he states he sleeps well. Recent labs were notable for: 04/25/23: HgA1C 6.0 % 04/25/2023 17:03 EDT 08/10/2023: BUN 28 mg/dL, Creatinine-Blood 2.0 mg/dl 08/10/2023 Nt-Probnp 985 pg/mL 04/25/2023 Nt-Probnp 1624 pg/mL 05/18/23: Sed Rate 111 05/16/23: Sed Rate 121 PFSH Medical History Arthritis Hyperlipidemia Gout Chronic kidney disease, stage 3 Hypertension Ureteral cancer Surgical History H/O ileostomy Social History Alcohol intake: never Patient Tobacco Use Status: Never used Tobacco Physical Exam Vital Signs: Last Vital Signs Pulse 62 07/22/24 15:05 BP 140/64 H 07/22/24 15:05 Pulse Ox 96 07/22/24 15:05 Oxygen Delivery Method Room Air 07/22/24 15:05 BMI result Body Mass Index 30.7 Const General: cooperative and no acute distress Resp Effort & Inspection: normal respiratory effort and able to speak in complete sentences Neuro Other: General: Alert and oriented x3 Expression: Decreased facial expression with left facial droop. Voice: Soft voice Tremor: No appreciable BUE postural tremor today Tone: BUE Dyskinesia: None FFM: Bradykinesia left more so than right Foot taps: Bradykinesia left more so than right Gait: Slow to stand, slight stoop, decreased arm swing, very short steps w/ low floor clearance. 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 Code(s): R25.1 - Tremor, unspecified Category: Medical (2) Rigidity: Code(s): R29.898 - Other symptoms and signs involving the musculoskeletal system Category: Medical (3) Multiple cerebral infarctions: Code(s): I63.9 - Cerebral infarction, unspecified Category: Medical (4) Gait disturbance: Code(s): R26.9 - Unspecified abnormalities of gait and mobility Category: Medical (5) Bradykinesia: Code(s): R25.8 - Other abnormal involuntary movements Category: Medical (6) Obstructive sleep apnea: Code(s): G47.33 - Obstructive sleep apnea (adult) (pediatric) Category: Medical Plan Discussed that we have not diagnosed patient with idiopathic Parkinson's disease. However many of his symptoms are seen in Parkinson's, thus patient may have underlying idiopathic Parkinson's versus vascular parkinsonism, as has had had multiple small strokes, in various areas of the brain, but also notably within bilateral basal ganglia. I would like to see patients therapeutic response to levodopa trial, before making a final diagnosis. Again trial carbidopa levodopa 25-100 mg 1 tab b.i.d., he may take with a small amount of carbohydrate or with a small meal- in hopes this lessened side effects of dizziness and headache. Encouraged patient to increase overall fluid intake. Continue to use walker or cane for ambulation. For secondary stroke prevention- Continue amlodipine, statin, metoprolol. Appears not already taking it, and there are no contraindications, start aspirin 81 mg q.h.s.. Patient also encouraged to discuss recent abdominal CT pulmonary findings with PCP- as patient and have declined follow-up pulmonary PET scan. ? Follow-up upon review of above and in clinic in 6 months or sooner as needed. Coding Level of Care Code Est Pt Level 4 (00623) Diagnoses Tremor R25.1 Rigidity R29.898 Multiple cerebral infarctions I63.9 Gait disturbance R26.9 Bradykinesia R25.8 Obstructive sleep apnea G47.33
== END 2024-07-22 16:03 | disposition home or self-care (01) ==
PROVIDERS: PCP Internal Medicine; Visit Provider Nurse Practitioner Family
DX: R25.1 Tremor, unspecified (principal); R29.898 Other symptoms and signs involving the musculoskeletal system; I69.30 Unspecified sequelae of cerebral infarction; R26.9 Unspecified abnormalities of gait and mobility; R25.8 Other abnormal involuntary movements; G47.33 Obstructive sleep apnea (adult) (pediatric)
CPT/HCPCS: 99214

== ENCOUNTER → 2024-07-22 14:53 | Outpatient (BNVA) | payer OTHER, SELFPAY | PROVIDERS: PCP Internal Medicine; Visit Provider Nurse Practitioner Family ==